=== PATIENT | female | born 1970 | race Caucasian/White ===

== ENCOUNTER 2018-07-01 08:05 | Emergency (ER) | payer BC ==
[2018-07-01] MEDS ORDERED: ALUM-MAG HYDROX-SIMETH 200-200-20MG/5ML PO ONE (08:36)
[2018-07-01] MEDS ORDERED: PEPCID PO ONE (08:36)
[2018-07-01] MEDS ORDERED: LIDOCAINE VISCOUS 2% PO ONE (08:36)
[2018-07-01] MEDS ORDERED: ZOFRAN ODT PO ONE (08:36)
--- NOTE | 2018-07-01 08:44 | Emergency Department Report ---
ED Chest Pain HPI - General Chief Complaint: Chest Pain Stated Complaint: CHEST PAIN/THROAT PAIN Time Seen by Provider: 07/01/18 08:31 Source: patient Mode of arrival: Ambulatory Limitations: No Limitations - History of Present Illness Initial Comments: PT IS 48 YO FEMALE WHO COMES IN WITH CP THAT THAT STARTS IN HER THROAT AND RADIATES SUBSTERNAL. SHE STATES SOMETIMES IT IS WORSE AFTER EATING. STATES IT IS WORSE WITH MOVEMENT. TYLENOL GIVES HER SOME RELIEF SHE DOES DO PACKING OF BOXES FOR A LIVING. SHE DENIES KNOWING ANY TIME WHERE SHE STRAINED. - Related Data Previous Rx's Medication Instructions Recorded Last Taken Type RX: Naproxen Sodium [Aleve TAB] 220 mg PO Q8H PRN #20 tablet 07/01/18 Unknown Rx Allergies Allergy/AdvReac Type Severity Reaction Status Date / Time No Known Allergies Allergy Unverified 07/01/18 08:25 Heart Score - HEART Score History: Slightly suspicious EKG: Normal Age: < 45 Risk factors: No known risk factors Troponin: < normal limit HEART Score: 0 ED Review of Systems ROS: Stated complaint: CHEST PAIN/THROAT PAIN Other details as noted in HPI Comment: All other systems reviewed and negative Constitutional: denies: chills Eyes: denies: as per HPI ENT: denies: ear pain Respiratory: denies: see HPI, cough, orthopnea, shortness of breath, SOB with exertion, SOB at rest, stridor Cardiovascular: as per HPI, chest pain. denies: palpitations, dyspnea on exertion, orthopnea, edema, syncope, paroxysmal nocturnal dyspnea Endocrine: denies: excessive sweating Gastrointestinal: denies: abdominal pain Musculoskeletal: denies: back pain Neurological: denies: headache Psychiatric: denies: anxiety Hematological/Lymphatic: denies: as per HPI ED Past Medical Hx - Past Medical History Previous Medical History?: No - Surgical History Past Surgical History?: No Additional Surgical History: BACK / C SECTION - Family History Family history: no significant - Social History Smoking Status: Never Smoker Substance Use Type: None - Medications Home Medications: Home Medications Medication Instructions Recorded Confirmed Last Taken Type RX: Naproxen Sodium [Aleve TAB] 220 mg PO Q8H PRN #20 tablet 07/01/18 Unknown Rx ED Physical Exam - General Limitations: No Limitations General appearance: alert - Head Head exam: Present: atraumatic - Eye Eye exam: Present: normal appearance Pupils: Present: normal accommodation - ENT ENT exam: Present: normal exam, mucous membranes moist - Neck Neck exam: Present: normal inspection - Respiratory Respiratory exam: Present: normal lung sounds bilaterally - Cardiovascular Cardiovascular Exam: Present: regular rate - GI/Abdominal GI/Abdominal exam: Present: soft, normal bowel sounds - Rectal Rectal exam: Present: deferred - Extremities Exam Extremities exam: Present: normal inspection, full ROM - Back Exam Back exam: Present: normal inspection, full ROM. Absent: CVA tenderness (R), CVA tenderness (L), muscle spasm - Neurological Exam Neurological exam: Present: alert, oriented X3, CN II-XII intact, normal gait - Psychiatric Psychiatric exam: Present: normal affect, normal mood - Skin Skin exam: Present: warm, dry, intact ED Course Vital Signs 07/01/18 07/01/18 08:25 10:25 Temperature 99 F Pulse Rate 93 H 82 Respiratory 18 18 Rate Blood Pressure 151/92 Blood Pressure 155/93 [Right] O2 Sat by Pulse 97 100 Oximetry BARRERA score - Barrera Score Age > 65: (0) No Aspirin use within the Past 7 Days: (0) No 3 or more CAD Risk Factors: (0) No 2 or more Angina events in past 24 hrs: (0) No Known CAD with more than 50% Stenosis: (0) No Elevated Cardiac Markers: (0) No ST Deviation Greater than 0.5mm: (0) No BARRERA Score: 0 ED Medical Decision Making - EKG Data EKG shows normal: sinus rhythm Rate: normal - EKG Data When compared to previous EKG there are: no significant change Interpretation: no acute changes - Radiology Data Radiology results: report reviewed, image reviewed nap - Medical Decision Making 12 lead normal xray chest normal GI cocktail without relief pain worsens with movement medicated with toradol and home with nsaids and follow up DC HOME WITH HER FAMILY VERBALIZES UNDERSTANDING OF DC PLAN OF CARE. - Differential Diagnosis ro acs; ro urti; ro gerd Critical care attestation.: If time is entered above; I have spent that time in minutes in the direct care of this critically ill patient, excluding procedure time. ED Disposition Clinical Impression: Musculoskeletal chest pain Disposition: DC-01 TO HOME OR SELFCARE Is pt being admited?: No Does the pt Need Aspirin: No Condition: Stable Instructions: Noncardiac Chest Pain (ED) Additional Instructions: hydrate well stretch each am med as ordered today do not take on empty stomach if persists follow up with pcp referral given below xray of chest and 12 lead ekg of heart normal today Prescriptions: RX: Naproxen Sodium [Aleve TAB] 220 mg PO Q8H PRN #20 tablet PRN Reason: Pain Referrals: GRACIE MELISSA MD [Primary Care Provider] - 3-5 Days DOMINIQUE MELISSA MD [Referring] - 3-5 Days Time of Disposition: 10:13
[2018-07-01] MEDS ORDERED: TORADOL IM ONE (10:12)
[2018-07-01 10:26] VITALS: BP 155/93
--- NOTE | 2018-07-01 10:48 | XRay Report ---
FINAL REPORT EXAM: XR CHEST ROUTINE 2V HISTORY: CHEST PAIN TECHNIQUE: Chest, two views PRIORS: None. FINDINGS: The heart size is normal. Mediastinal contours are normal. Pulmonary vasculature is not congested. The lungs are clear. There are no pleural effusion seen. There is no evidence of pneumothorax. IMPRESSION: There is no acute abnormality identified.
== END 2018-07-01 10:25 | disposition home or self-care (01) ==
LOC: ED 08:05
DX: R07.89 Other chest pain (principal)
CPT/HCPCS: 71046; 93005; 93010; 96372; 99283; J1885; Q0162